=== PATIENT | male | born 1975 | race African-American/Black ===

== ENCOUNTER 2018-02-16 13:03 | Emergency (ER) | payer SELFPAY ==
[2018-02-16 13:39] VITALS: BP 136/95
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
--- NOTE | 2018-02-16 18:46 | EKG REPORT ---
SEVERITY:- ABNORMAL ECG - SINUS RHYTHM FIRST DEGREE AV BLOCK BORDERLINE T ABNORMALITIES, INFERIOR LEADS : Confirmed by: Lambert Valencia MD 16-Feb-2018 18:46:06
== END 2018-02-16 15:33 | disposition home or self-care (01) ==
LOC: ER 13:03
DX: T63.441A Toxic effect of venom of bees, accidental (unintentional), initial encounter (principal); R22.0 Localized swelling, mass and lump, head
CPT/HCPCS: 93005; 93010; 99283